=== PATIENT | male | born 2000 ===

== ENCOUNTER 2024-08-13 15:37 | Emergency (ER) | payer OTHER ==
[~2024-08-13] VITALS: Ht 172.7 cm; Wt 80.0 kg
[2024-08-13] MEDS: IBUPROFEN 600 MG TABLET PO ONE (18:42)
[2024-08-13] MEDS ORDERED: IBUP-1492 PO (19:54)
[2024-08-13 19:59] VITALS: BP 111/63; PULSE 65; RESP 18; TEMP 98.2; O2SAT 98
== END 2024-08-13 20:16 | disposition home or self-care (01) ==
LOC: EMS 15:37
DX: S09.90XA Unspecified injury of head, initial encounter (principal); W22.8XXA Striking against or struck by other objects, initial encounter; Y93.89 Activity, other specified; Y92.89 Other specified places as the place of occurrence of the external cause; Y99.0 Civilian activity done for income or pay
CPT/HCPCS: 70450; 99284